=== PATIENT | male | born 2000 | race Caucasian/White ===

== ENCOUNTER 2021-09-17 02:29 | Emergency (ER) | payer MEDICAID, OTHER ==
[~2021-09-17] VITALS: Ht 177.8 cm; Wt 49.9 kg
[2021-09-17] MEDS ORDERED: CHARCOAL/AQUEOUS 50 GM/240 ML BTL PO ONE (02:45)
--- NOTE | 2021-09-17 02:50 | ED Psychosocial ---
General Stated Complaint: OD Source: patient, EMS Exam Limitations: no limitations (BYRON FARIA MD) History of Present Illness Date Seen by Provider: September 17, 2021 Time Seen by Provider: 02:35 Initial Comments Patient is a 21-year-old male who presents to the emergency department today with a chief complaint of depression, suicidal ideation with attempt. He states that he took 16 325 mg aspirin at about 135 this morning. He does not know if the aspirin were "enteric coated" or not. He states he felt "overwhelmed with life". He does not elaborate on why he specifically overdosed tonight. He states he has never attempted suicide in the past. No prior hospitalizations. He states he called the ambulance because his ex girlfriend was worried about him. He states he has had depression since he has been about 8 years old. He recently started Prozac a month ago by his primary care physician, Dr. Negrete. He is on 10 mg daily. He denies any other ingestions tonight. He lives at home with several family members a total of 8 people. He is not currently working. He is not currently in school. When I asked him if he still felt suicidal he said "yes a little bit". We talked about voluntary admission to a psychiatric facility and at this point he seems agreeable. He denies any recent illnesses such as fevers, chills, cough or congestion, no COVID complaints. He is not currently feeling nauseous or having abdominal pain. He is not dizzy. He feels a little "hot". He has not vomited. All other review of systems reviewed and negative except as stated. Timing/Duration: just prior to arrival (134) Severity: severe Associated Symptoms: suicidal ideation (BYRON FARIA MD) Allergies and Home Medications Allergies Coded Allergies: No Known Drug Allergies (Unverified , 03/03/14) Patient Home Medication List Home Medication List Reviewed: Yes (BYRON FARIA MD) No Active Prescriptions or Reported Meds Review of Systems Constitutional: see HPI EENTM: no symptoms reported Respiratory: no symptoms reported Cardiovascular: no symptoms reported Gastrointestinal: no symptoms reported Genitourinary: no symptoms reported Musculoskeletal: no symptoms reported Skin: other (feels "hot") Psychiatric/Neurological: Depressed, Emotional Problems (BYRON FARIA MD) All Other Systems Reviewed Negative Unless Noted: Yes (BYRON FARIA MD) Past Clbnlbo-Nonxnn-Kymqsp Hx Immunizations Up To Date PED Vaccines UTD: Yes (BYRON FARIA MD) Seasonal Allergies Seasonal Allergies: Yes (BYRON FARIA MD) Past Medical History Reproductive Disorders: No (BYRON FARIA MD) Family Medical History Diabetes mellitus (YOUNGER BROTHER AND GRANDFATHER) Physical Exam Vital Signs - First Documented (LEXI KHAN) Capillary Refill : (BYRON FARIA MD) Height, Weight, BMI Height: 5'2" Weight: 100lbs. oz. 45.432325pz; BMI Method:Stated General Appearance: WD/WN, no apparent distress HEENT: PERRL/EOMI Neck: normal inspection Respiratory: lungs clear, normal breath sounds, no respiratory distress, no accessory muscle use Cardiovascular: regular rate, rhythm (80's) Gastrointestinal: non tender, soft Extremities: normal range of motion, normal inspection, normal capillary refill Neurologic/Psychiatric: alert, oriented x 3, depressed affect, other (good eye contact; answers questions - but avoids elaborating on details as to why he took the aspirin) Appearance/Memory: appropriate appearance, neat Behavior/Eye Contact: cooperative, good eye contact, normal speech Thoughts/Hallucinations: normal thought pattern, no apparent hallucination Skin: normal color, warm/dry, other (skin feels warm) (BYRON FARIA MD) Progress/Results/Core Measures Results/Orders Lab Results Laboratory Tests Test 09/17/21 02:55 09/17/21 03:15 09/17/21 03:45 09/17/21 04:32 Range/Units White Blood Count 9.1 4.3-11.0 10^3/uL Red Blood Count 5.40 4.30-5.52 10^6/uL Hemoglobin 16.0 13.3-17.7 g/dL Hematocrit 46 40-54 % Mean Corpuscular Volume 86 80-99 fL Mean Corpuscular Hemoglobin 30 25-34 pg Mean Corpuscular Hemoglobin Concent 35 32-36 g/dL Red Cell Distribution Width 11.9 10.0-14.5 % Platelet Count 274 130-400 10^3/uL Mean Platelet Volume 10.6 9.0-12.2 fL Immature Granulocyte % (Auto) 0 % Neutrophils (%) (Auto) 62 42-75 % Lymphocytes (%) (Auto) 28 12-44 % Monocytes (%) (Auto) 8 0-12 % Eosinophils (%) (Auto) 1 0-10 % Basophils (%) (Auto) 1 0-10 % Neutrophils # (Auto) 5.7 1.8-7.8 10^3/uL Lymphocytes # (Auto) 2.5 1.0-4.0 10^3/uL Monocytes # (Auto) 0.7 0.0-1.0 10^3/uL Eosinophils # (Auto) 0.1 0.0-0.3 10^3/uL Basophils # (Auto) 0.1 0.0-0.1 10^3/uL Immature Granulocyte # (Auto) 0.0 0.0-0.1 10^3/uL Sodium Level 141 139 135-145 MMOL/L Potassium Level 3.8 3.6 3.6-5.0 MMOL/L Chloride Level 104 105 98-107 MMOL/L Carbon Dioxide Level 22 20 L 21-32 MMOL/L Anion Gap 15 H 14 5-14 MMOL/L Blood Urea Nitrogen 20 H 19 H 7-18 MG/DL Creatinine 1.10 1.03 0.60-1.30 MG/DL Estimat Glomerular Filtration Rate 99 107 BUN/Creatinine Ratio 18 18 Glucose Level 93 93 70-105 MG/DL Calcium Level 10.1 9.6 8.5-10.1 MG/DL Corrected Calcium 8.5-10.1 MG/DL Total Bilirubin 0.5 0.4 0.1-1.0 MG/DL Aspartate Amino Transf (AST/SGOT) 26 25 5-34 U/L Alanine Aminotransferase (ALT/SGPT) 35 32 0-55 U/L Alkaline Phosphatase 80 74 40-136 U/L Total Protein 8.0 7.3 6.4-8.2 GM/DL Albumin 5.0 H 4.6 H 3.2-4.5 GM/DL Salicylates Level 12.1 11.3 5.0-20.0 MG/DL Acetaminophen Level < 10 L 10-30 UG/ML Serum Alcohol < 10 <10 MG/DL Influenza Type A (RT-PCR) Not Detected Not Detecte Influenza Type B (RT-PCR) Not Detected Not Detecte SARS-CoV-2 RNA (RT-PCR) Not Detected Not Detecte Blood Gas Puncture Site RIGHT RADIAL Blood Gas Patient Temperature 37 Arterial Blood pH 7.41 7.37-7.43 Arterial Blood Partial Pressure CO2 33 L 35-45 MMHG Arterial Blood Partial Pressure O2 102 H 79-93 MMHG Arterial Blood HCO3 21 L 23-27 MMOL/L Arterial Blood Total CO2 21.6 21.0-31.0 MMOL/L Arterial Blood Oxygen Saturation 98 94-100 % Arterial Blood Base Excess -3.3 L -2.5-2.5 MMOL/L Asif Test POSITIVE Blood Gas Ventilator Setting NO Blood Gas Inspired Oxygen RA Urine Color YELLOW Urine Clarity SL CLOUDY Urine pH 7.0 5-9 Urine Specific [place] 1.025 H 1.016-1.022 Urine Protein NEGATIVE NEGATIVE Urine Glucose (UA) NEGATIVE NEGATIVE Urine Ketones NEGATIVE NEGATIVE Urine Nitrite NEGATIVE NEGATIVE Urine Bilirubin NEGATIVE NEGATIVE Urine Urobilinogen 0.2 < = 1.0 MG/DL Urine Leukocyte Esterase NEGATIVE NEGATIVE Urine RBC (Auto) NEGATIVE NEGATIVE Urine RBC NONE /HPF Urine WBC NONE /HPF Urine Squamous Epithelial Cells 0-2 /HPF Urine Crystals NONE /LPF Urine Bacteria NEGATIVE /HPF Urine Casts NONE /LPF Urine Mucus NEGATIVE /LPF Urine Culture Indicated NO Urine Opiates Screen NEGATIVE NEGATIVE Urine Oxycodone Screen NEGATIVE NEGATIVE Urine Methadone Screen NEGATIVE NEGATIVE Urine Propoxyphene Screen NEGATIVE NEGATIVE Urine Barbiturates Screen NEGATIVE NEGATIVE Ur Tricyclic Antidepressants Screen NEGATIVE NEGATIVE Urine Phencyclidine Screen NEGATIVE NEGATIVE Urine Amphetamines Screen NEGATIVE NEGATIVE Urine Methamphetamines Screen NEGATIVE NEGATIVE Urine Benzodiazepines Screen NEGATIVE NEGATIVE Urine Cocaine Screen NEGATIVE NEGATIVE Urine Cannabinoids Screen POSITIVE H NEGATIVE (LEXI KHAN) My Orders Orders - LEXI KHAN General/Regular (09/17/21 Breakfast) (LEXI KHAN) Medications Given in ED Current Medications Medications Dose Ordered Sig/Soham Route Start Time Stop Time Status Last Admin Dose Admin Charcoal 50 gm ONCE ONCE PO 09/17/21 02:45 09/17/21 02:46 DC 09/17/21 02:54 50 GM (LEXI KHAN) Vital Signs/I&O 09/17/21 09/17/21 02:30 02:30 Temp 37.0 Pulse 79 Resp 16 B/P (MAP) 131/98 (109) Pulse Ox 99 O2 Delivery Room Air Room Air (LEXI KHAN) Progress Progress Note : Time: 03:50 Progress Note rechecked patient - still without symptoms. Not tachycardic or tachypneic. No abdominal pain, n/v. Is not light headed or SOB. Initial salicylate was 12. Will recheck a cmp and level at 430. I suspect at this time a non toxic ingestion due to no developing symptoms of a reported 5gm ingestion - at 0130. He should have well developed symptoms by this point. Will continue to monitor. (BYRON FARIA MD) Progress Note #1: Progress Note Assumed care of the patient at shift change. He is resting comfortably asleep and his salicylates are going down. He is medically cleared. We are going to contact [facility] shortly for a screening. Progress Note #2: Time: 09:53 Progress Note Mental health animal chiropractor from [facility] has visited with the patient and working with the patient they have come up with a safety plan for the patient to discharge safely home. He has family involved. We agree with this plan. (LEXI KHAN) Initial ECG Impression Date: September 17, 2021 Initial ECG Impression Time: 02:52 Initial ECG Rate: 55 Initial ECG Rhythm: S.Mike Initial ECG Intervals: Normal Initial ECG Impression: Normal Initial ECG Comparisson: No Previous ECG Available (BYRON FARIA MD) Departure Impression Primary Impression: Salicylate overdose Qualified Codes: T39.092A - Poisoning by salicylates, intentional self-harm, initial encounter Additional Impressions: Suicide attempt Depression Qualified Codes: F32.2 - Major depressive disorder, single episode, severe without psychotic features Disposition: 01 HOME, SELF-CARE Condition: Stable Departure-Patient Inst. Decision time for Depature: 09:53 (LEXI KHAN) Referrals: UNKNOWN (PCP/Family) Primary Care Physician Patient Instructions: OUTPT MENTAL HEALTH SERVICES, Depression, Adult (DC) Add. Discharge Instructions: Please refer to the safety plan. Return to the ER, or call [facility] at [phone] if you are having worsening depression or suicidal thoughts Scripts No Active Prescriptions or Reported Meds Work/School Note: Work Release Form Date Seen in the Emergency Department: September 16, 2021 Return to Work: September 20, 2021 Restrictions: No Restrictions Copy Copies To 1: SELENE NEGRETE MD, KATHRYN M MD September 17, 2021 02:50 LEXI KHAN September 17, 2021 06:10
[2021-09-17 03:05] LABS: BASOPHILS # (AUTO) 0.1 10^3/uL (0.0-0.1); BASOPHILS % (AUTO) 1 % (0-10); EOSINOPHILS # (AUTO) 0.1 10^3/uL (0.0-0.3); EOSINOPHILS % (AUTO) 1 % (0-10); HEMATOCRIT 46 % (40-54); LYMPHOCYTES # (AUTO) 2.5 10^3/uL (1.0-4.0); LYMPHOCYTES % (AUTO) 28 % (12-44); MEAN CORPUSCULAR HEMOGLOBIN 30 pg (25-34); MEAN CORPUSCULAR HGB CONC 35 g/dL (32-36); MEAN CORPUSCULAR VOLUME 86 fL (80-99); MEAN PLATELET VOLUME 10.6 fL (9.0-12.2); MONOCYTES # (AUTO) 0.7 10^3/uL (0.0-1.0); MONOCYTES % (AUTO) 8 % (0-12); NEUTROPHILS # (AUTO) 5.7 10^3/uL (1.8-7.8); NEUTROPHILS % (AUTO) 62 % (42-75); PLATELET COUNT 274 10^3/uL (130-400); WHITE BLOOD COUNT 9.1 10^3/uL (4.3-11.0)
[2021-09-17 03:21] LABS: ABG BASE EXCESS -3.3 MMOL/L (-2.5-2.5); ABG OXYGEN SATURATION 98 % (94-100); ABG PCO2 33 MMHG (35-45); ABG PH 7.41 (7.37-7.43); ABG PO2 102 MMHG (79-93); ABG TCO2 21.6 MMOL/L (21.0-31.0)
[2021-09-17 03:23] LABS: CHLORIDE 104 MMOL/L (98-107); POTASSIUM 3.8 MMOL/L (3.6-5.0); SODIUM 141 MMOL/L (135-145)
[2021-09-17 03:23] LABS: ALLENS TEST POSITIVE; INSPIRED O2 RA; PATIENT TEMP 37; VENTILATOR NO
[2021-09-17 03:24] LABS: CALCIUM 10.1 MG/DL (8.5-10.1)
[2021-09-17 03:25] LABS: GLUCOSE 93 MG/DL (70-105)
[2021-09-17 03:26] LABS: CARBON DIOXIDE 22 MMOL/L (21-32)
[2021-09-17 03:27] LABS: BILIRUBIN,TOTAL 0.5 MG/DL (0.1-1.0)
[2021-09-17 03:29] LABS: ALKALINE PHOSPHATASE 80 U/L (40-136); GFR ESTIMATED 99
[2021-09-17 03:30] LABS: BUN/CREATININE RATIO 18
[2021-09-17 03:32] LABS: ALANINE AMINOTRANSFERASE 35 U/L (0-55); SALICYLATE 12.1 MG/DL (5.0-20.0)
[2021-09-17 03:43] LABS: ACETAMINOPHEN < 10 UG/ML (10-30)
[2021-09-17 03:53] LABS: BILIRUBIN,URINE NEGATIVE (NEGATIVE); CLARITY,URINE SL CLOUDY; COLOR,URINE YELLOW; GLUCOSE, URINE (UA) NEGATIVE (NEGATIVE); KETONES,URINE NEGATIVE (NEGATIVE); LEUKOCYTE ESTERASE ,URINE NEGATIVE (NEGATIVE); NITRITE,URINE NEGATIVE (NEGATIVE); PROTEIN,URINE NEGATIVE (NEGATIVE)
[2021-09-17 04:33] LABS: BACTERIA,URINE NEGATIVE /HPF; SQUAMOUS EPITHELIAL CELL,UR 0-2 /HPF
[2021-09-17 04:34] LABS: AMPHETAMINE SCREEN, URINE NEGATIVE (NEGATIVE); BARBITURATE SCREEN URINE NEGATIVE (NEGATIVE); BENZODIAZEPINES SCREEN URINE NEGATIVE (NEGATIVE); CANNABINOID SCREEN, URINE POSITIVE (NEGATIVE); COCAINE SCREEN URINE NEGATIVE (NEGATIVE); METHADONE STAT NEGATIVE (NEGATIVE); OPIATE SCREEN URINE NEGATIVE (NEGATIVE); OXYCODONE STAT NEGATIVE (NEGATIVE); PROPOXYPHENE STAT NEGATIVE (NEGATIVE); TRICYCLIC ANTIDEPRESSANTS SCRE NEGATIVE (NEGATIVE)
[2021-09-17 04:52] LABS: ALBUMIN 4.6 GM/DL (3.2-4.5)
[2021-09-17 04:53] LABS: CHLORIDE 105 MMOL/L (98-107); POTASSIUM 3.6 MMOL/L (3.6-5.0); SODIUM 139 MMOL/L (135-145)
[2021-09-17 04:54] LABS: CALCIUM 9.6 MG/DL (8.5-10.1)
[2021-09-17 04:55] LABS: GLUCOSE 93 MG/DL (70-105); TOTAL PROTEIN 7.3 GM/DL (6.4-8.2)
[2021-09-17 04:56] LABS: CARBON DIOXIDE 20 MMOL/L (21-32)
[2021-09-17 04:57] LABS: BILIRUBIN,TOTAL 0.4 MG/DL (0.1-1.0)
[2021-09-17 04:59] LABS: ALKALINE PHOSPHATASE 74 U/L (40-136); CREATININE SERUM 1.03 MG/DL (0.60-1.30); GFR ESTIMATED 107
[2021-09-17 05:00] LABS: BUN/CREATININE RATIO 18
[2021-09-17 05:01] LABS: SALICYLATE 11.3 MG/DL (5.0-20.0)
[2021-09-17 05:02] LABS: ALANINE AMINOTRANSFERASE 32 U/L (0-55)
[2021-09-17 10:05] VITALS: BP 129/86
== END 2021-09-17 10:05 | disposition home or self-care (01) ==
LOC: EDUNIT# 02:29 → ER 02:32
DX: T39.092A Poisoning by salicylates, intentional self-harm, initial encounter (principal); F32.2 Major depressive disorder, single episode, severe without psychotic features; Z20.822 Contact with and (suspected) exposure to COVID-19
CPT/HCPCS: 80053; 80306; 81000; 82805; 85025; 87636; 93005; 93041; 99285; G0480 ×3; 36415; 80320; 80329